=== PATIENT | male | born 2005 | race Caucasian/White ===

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

== ENCOUNTER 2023-06-02 20:28 | Emergency (ER) | payer OTHER ==
[~2023-06-02] VITALS: Ht 175.3 cm; Wt 63.3 kg
[~2023-06-02 20:28] MED LIST: ACET-683 PO; BENZ200C70 PO; IBUP200C27 PO
[2023-06-02] MEDS ORDERED: MUCI1TAB16 PO (20:35)
[2023-06-02 22:22] LABS: HEMATOCRIT 43.2 % (42.0-52.0); HEMOGLOBIN 15.3 g/dl (13.5-17.5); MEAN CORPUSCULAR HEMOGLOBIN 31.1 pg (27.0-33.0); MEAN CORPUSCULAR HGB CONC 35.4 g/dl (32.0-36.5); MEAN CORPUSCULAR VOLUME 87.8 fl (80.0-96.0); PLATELET COUNT, AUTOMATED 177 10^3/uL (150-450); RED BLOOD COUNT 4.92 10^6/uL (4.30-6.10); WHITE BLOOD COUNT 7.6 10^3/uL (4.0-10.0)
[2023-06-02 22:36] LABS: INR 1.11; PARTIAL THROMBOPLASTIN TIME 30.8 SECONDS (24.8-34.2)
[2023-06-02 22:49] LABS: BLOOD UREA NITROGEN 12 MG/DL (9-23); CALCIUM LEVEL 8.9 MG/DL (8.5-10.1); CARBON DIOXIDE LEVEL 30 MMOL/L (20-31); CHLORIDE LEVEL 104 MMOL/L (98-107); CREATININE FOR GFR 0.77 MG/DL (0.70-1.30); GLUCOSE, FASTING 111 MG/DL (60-100); POTASSIUM SERUM 3.9 MMOL/L (3.5-5.1); SODIUM LEVEL 140 MMOL/L (136-145)
[2023-06-02 22:57] LABS: MONO REFLEX EBV COMP NEGATIVE (NEGATIVE)
[2023-06-02 23:00] VITALS: BP 126/76; TEMP 97.1; O2SAT 98
[2023-06-05 17:07] LABS: EBV AB TO NUCLEAR ANTIGEN <18.0 U/mL (0.0-17.9); EBV VIRAL CAPSID AG IgG <18.0 U/mL (0.0-17.9); EBV VIRAL CAPSID AG IgM <36.0 U/mL (0.0-35.9)
== END 2023-06-02 23:48 | disposition home or self-care (01) ==
LOC: M ED 20:28
DX: J06.9 Acute upper respiratory infection, unspecified (principal); B34.2 Coronavirus infection, unspecified; Z20.822 Contact with and (suspected) exposure to COVID-19; F17.200 Nicotine dependence, unspecified, uncomplicated; Z88.0 Allergy status to penicillin; Z79.899 Other long term (current) drug therapy; Z79.1 Long term (current) use of non-steroidal anti-inflammatories (NSAID)

== ENCOUNTER → 2024-04-05 | Outpatient (CLI) | payer OTHER ==
[~2024-04-05] MED LIST changes: +ISOVUE-300 61% 100ML VIAL As Ordered ONE; +ISOVUE-M 300 61% 15ML VIAL As Ordered ONE; +LIDOCAINE 1% MDV 20ML VIAL As Ordered ONE; +MUCI1TAB16 PO; +TRIAMCINOLONE ACETONIDE SUSP 40MG/ML 1ML VIAL As Ordered ONE
== END ==
LOC: M RAD 12:24
PROVIDERS: ATTEND Physician Assistant Surgical
DX: S73.122A Ischiocapsular ligament sprain of left hip, initial encounter (principal); X58.XXXA Exposure to other specified factors, initial encounter; Y92.9 Unspecified place or not applicable
CPT/HCPCS: 20610; 77002; J3301; Q9967